=== PATIENT | male | born 1955 | race American Indian/Alaskan Native ===

== ENCOUNTER 2023-12-11 11:53 | Outpatient (CLI) | payer OTHER | END 2023-12-11 12:01 | disposition home or self-care (01) | LOC: RAD 11:53 | PROVIDERS: ATTEND Orthopaedic Surgery | DX: M79.642 Pain in left hand (principal); M79.645 Pain in left finger(s) ==

== ENCOUNTER 2024-01-14 09:07 | Outpatient (CLI) | payer OTHER | END 2024-01-14 09:10 | disposition home or self-care (01) | LOC: NUCLEAR 09:07 | PROVIDERS: ATTEND Orthopaedic Surgery | DX: M81.0 Age-related osteoporosis without current pathological fracture (principal) ==

== ENCOUNTER 2024-01-23 10:52 | Outpatient (CLI) | payer OTHER | END 2024-01-23 10:53 | disposition home or self-care (01) | LOC: LAB 10:52 | PROVIDERS: ATTEND Orthopaedic Surgery | DX: E55.9 Vitamin D deficiency, unspecified (principal); M85.9 Disorder of bone density and structure, unspecified; E56.1 Deficiency of vitamin K ==

== ENCOUNTER 2024-06-20 11:01 | Emergency (ER) | payer OTHER ==
[~2024-06-20] VITALS: Ht 177.8 cm; Wt 70.3 kg
[2024-06-20] MEDS ORDERED: OxyCODONE HCL/APAP UD (PERCOCET) PO ONE (12:15)
[2024-06-20] MEDS ORDERED: MORPHINE SULFATE 4 MG/ML CARTRIDGE IV ONE (13:45)
[2024-06-20] MEDS ORDERED: MORPHINE SULFATE 4 MG/ML VIAL IV ONE (15:15)
== END 2024-06-20 17:54 | disposition home or self-care (01) ==
LOC: ER 11:03
DX: S42.392A Other fracture of shaft of left humerus, initial encounter for closed fracture (principal); W19.XXXA Unspecified fall, initial encounter; Y93.55 Activity, bike riding; Y92.89 Other specified places as the place of occurrence of the external cause; Y99.8 Other external cause status; Z88.6 Allergy status to analgesic agent
CPT/HCPCS: 29105; 71046; 73030; 96365; 99283; J2270 ×2

== ENCOUNTER 2024-09-13 11:52 | Outpatient (CLI) | payer OTHER | END 2024-09-13 12:03 | disposition home or self-care (01) | LOC: MRI 11:52 | PROVIDERS: ATTEND Physical Medicine & Rehabilitation | DX: M25.512 Pain in left shoulder (principal); S42.202A Unspecified fracture of upper end of left humerus, initial encounter for closed fracture | CPT/HCPCS: 73221 ==

== ENCOUNTER 2024-09-24 08:11 | Outpatient (CLI) | payer OTHER | END 2024-09-24 08:22 | disposition home or self-care (01) | LOC: LAB 08:11 | PROVIDERS: ATTEND Orthopaedic Surgery | DX: E55.9 Vitamin D deficiency, unspecified (principal); M85.9 Disorder of bone density and structure, unspecified; E56.1 Deficiency of vitamin K; S42.225D 2-part nondisplaced fracture of surgical neck of left humerus, subsequent encounter for fracture with routine healing; M79.671 Pain in right foot ==

== ENCOUNTER 2024-09-24 08:37 | Outpatient (CLI) | payer OTHER | END 2024-09-24 08:42 | disposition home or self-care (01) | LOC: RAD 08:37 | PROVIDERS: ATTEND Orthopaedic Surgery | DX: S42.225D 2-part nondisplaced fracture of surgical neck of left humerus, subsequent encounter for fracture with routine healing (principal); M79.671 Pain in right foot ==

== ENCOUNTER → 2024-10-19 09:45 | Outpatient (CLI) | payer OTHER ==
[2024-10-19 12:49] LABS: ALBUMIN 3.8 gm/dL (3.4-5.0); BILIRUBIN TOTAL 0.6 mg/dL (0.3-1.2); CALCIUM 9.9 mg/dL (8.5-10.1); CREATININE SERUM 1.03 mg/dL (0.70-1.30); GFR 71.81; GLOBULINA 3.4 G/DL (2.4-3.5); MAGNESIUM 2.1 mg/dL (1.8-2.4); PHOSPHOROUS 2.8 mg/dL (2.5-4.9); POTASSIUM 4.83 mEq/L (3.5-5.1); TOTAL PROTEIN 7.2 gm/dL (6.4-8.2)
== END | disposition home or self-care (01) ==
LOC: LAB 09:45
PROVIDERS: ATTEND Orthopaedic Surgery
DX: E55.9 Vitamin D deficiency, unspecified (principal); M85.9 Disorder of bone density and structure, unspecified; E56.1 Deficiency of vitamin K; E21.3 Hyperparathyroidism, unspecified; M81.8 Other osteoporosis without current pathological fracture

== ENCOUNTER 2024-10-19 10:08 | Outpatient (CLI) | payer OTHER | END 2024-10-19 10:14 | disposition home or self-care (01) | LOC: RAD 10:08 | PROVIDERS: ATTEND Orthopaedic Surgery | DX: S42.22 2-part fracture of surgical neck of humerus (principal) ==

== ENCOUNTER 2024-11-18 13:05 | Outpatient (CLI) | payer OTHER | END 2024-11-18 13:08 | disposition home or self-care (01) | LOC: RAD 13:05 | PROVIDERS: ATTEND Orthopaedic Surgery | DX: S42.22 2-part fracture of surgical neck of humerus (principal) ==

== ENCOUNTER 2024-12-07 09:14 | Outpatient (CLI) | payer OTHER | END 2024-12-07 09:16 | disposition home or self-care (01) | LOC: TOM 09:14 | PROVIDERS: ATTEND Orthopaedic Surgery | DX: S42.225D 2-part nondisplaced fracture of surgical neck of left humerus, subsequent encounter for fracture with routine healing (principal) ==

== ENCOUNTER 2025-02-02 08:05 | Outpatient (CLI) | payer OTHER | END 2025-02-02 08:08 | disposition home or self-care (01) | LOC: RAD 08:05 | PROVIDERS: ATTEND Orthopaedic Surgery | DX: S42.22 2-part fracture of surgical neck of humerus (principal) ==